=== PATIENT | male | born 1985 | race Caucasian/White ===

== ENCOUNTER → 2016-11-24 | Outpatient (CLI) | payer OTHER | LOC: KOH-I 09:00 | DX: R10.11 Right upper quadrant pain (principal) | CPT/HCPCS: 76705 ==

== ENCOUNTER → 2021-09-10 | Outpatient (CLI) | payer OTHER | LOC: EMI 09-08 10:00 | DX: G44.59 Other complicated headache syndrome (principal) | CPT/HCPCS: 70544; 70551 ==